=== PATIENT | male | born 1995 | race Two or more races ===

== ENCOUNTER 2025-04-11 14:53 | Outpatient (CLI) | payer OTHER ==
--- NOTE | 2025-04-11 15:24 | RADIOLOGY REPORT ---
CHEST RADIOGRAPH INDICATION: TB SCREENING TECHNIQUE: Frontal and lateral view of the chest was obtained COMPARISON: None FINDINGS: Lines and Tubes: None Lungs: Clear Pleura: No effusion. No pneumothorax. Cardiomediastinal contours: Unremarkable Bones: Unremarkable IMPRESSION: 1. No evidence of acute disease.
== END 2025-04-11 23:59 | disposition home or self-care (01) ==
LOC: RAD 14:53
PROVIDERS: ATTEND Internal Medicine Infectious Disease
DX: Z11.1 Encounter for screening for respiratory tuberculosis (principal)
CPT/HCPCS: 71046